=== PATIENT | female | born 1955 | race Caucasian/White ===

== ENCOUNTER 2017-03-09 10:01 | Emergency (ER) | payer OTHER ==
--- NOTE | 2017-03-09 10:18 | UCPHY ---
H & P Patient Type: New HPI/ROS: CHIEF COMPLAINT: Knee injury HISTORY OF PRESENT ILLNESS: 61-year-old female presents reporting that she stumbled and fell onto her right knee 3 days ago. Patient was able to get up and continue hiking. Knee has been bothering her but has been able to walk on it. This morning, when she woke, and felt like the knee was unstable when she got out of bed and somewhat out of place. No new injury. No history of DVT or PE. No fever, chills, chest pain, shortness of breath, palpitations, vomiting, diarrhea, urinary complaints, headache, lightheadedness. REVIEW OF SYSTEMS: Aside from elements discussed in the HPI, a comprehensive 10-point review of systems was reviewed and is negative. PAST MEDICAL HISTORY: Hypertension SOCIAL HISTORY: . GENERAL APPEARANCE: No acute distress. Pleasant. FOCUSED EXAM OF right knee: No obvious deformities. Patient has ecchymosis medially and laterally at the joint line. Difficult to appreciate swelling. Full range of motion. Negative anterior drawer. Knee is stable to medial and lateral stress. No tenderness to palpatio in the popliteal fossa. No swelling. No pain in the calf. No calf swelling. Neurovascular exam: Good capillary refill, normal motor exam, normal neurologic exam. Constitutional: Initial Vital Signs Temperature (C) 36.6 C 03/09/17 10:19 Heart Rate 78 03/09/17 10:19 Respiratory Rate 18 03/09/17 10:19 Blood Pressure 198/88 H 03/09/17 10:19 O2 Sat (%) 97 03/09/17 10:19 O2 Delivery Mode Room Air Allergies/Adverse Reactions: propoxyphene HCl [From Darvon] Allergy (Verified 11/13/12 16:06) Sulfa (Sulfonamide Antibiotics) [Sulfa(Sulfonamide Antibiotics)] Allergy ( Verified 11/13/12 16:06) Home Medications: Medication Instructions Recorded Atenolol 11/13/12 Levothyroxine [Synthroid 25 mcg 25 mcg PO DAILY06 11/13/12 (RX)] Medical Decision Making - Diagnostics Imaging: Imaging Impressions Knee X-Ray 03/09/17 10:40 Impression: 1. Moderate joint effusion with no acute osseous findings. 2. 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 ED Course/Re-evaluation: X-ray was obtained which demonstrates no fracture, osteoarthritis, moderate joint effusion. Patient is placed in a knee immobilizer. She was advised regarding rest, elevation, and close follow-up with her primary care physician. Please see the discharge instructions. Differential Diagnosis: Differential diagnosis for the patient's injury was considered including but not limited to contusion, abrasion, sprain, strain, dislocation, patellar dislocation, fracture, Tay cyst rupture, or dislocation. Departure - Departure Disposition: Home, Routine, Self-Care Clinical Impression: Knee injury Qualifiers: Encounter type: initial encounter Laterality: left Qualified Code(s): S89.92XA - Unspecified injury of left lower leg, initial encounter Knee contusion Qualifiers: Encounter type: initial encounter Laterality: left Qualified Code(s): S80.02XA - Contusion of left knee, initial encounter Condition: Good Instructions: Knee Sprain (ED), Knee Pain (ED) Additional Instructions: Mainstay of therapy is rest, ice, immobilization, elevation, and nonsteroidal anti-inflammatories for pain and to decrease swelling. Please use a heating pad to help with any pain discomfort in the knee. I recommend Ibuprofen (Motrin, Advil) or Naproxen Sodium (Aleve) for pain and anti-inflammatory effects. You may take either one, but do not take both. Your dose is: Ibuprofen 600 mg every 6-8 hours with food. OR Naproxen Sodium (Aleve) 220 mg every 12 hours. Wear the knee immobilizer if it provides the sense of stability. It is only needed for comfort. Followup with the physician as directed. Referrals: Yasmin Ramirez MD [Primary Care Provider] - As per Instructions ( Follow-up next week. If you continue to have pain, you may need further evaluation.) - PQRS PQRS Measurement: not applicable
[2017-03-09 10:25] VITALS: BP 198/88; PULSE 78; RESP 18; TEMP 98; O2SAT 97
== END 2017-03-09 11:34 | disposition home or self-care (01) ==
LOC: CED 10:01
DX: S89.91XA Unspecified injury of right lower leg, initial encounter (principal); S80.02XA Contusion of left knee, initial encounter; M25.461 Effusion, right knee; M17.11 Unilateral primary osteoarthritis, right knee; I10 Essential (primary) hypertension; W19.XXXA Unspecified fall, initial encounter; Y93.01 Activity, walking, marching and hiking
CPT/HCPCS: 73564-PO; G0463-PO; L1830

== ENCOUNTER → 2017-10-27 | Outpatient (CLI) | payer OTHER ==
[~2017-10-27] MED LIST: IOPAMIDOL (ISOVUE-300) 100 ML BTL ONE
== END ==
LOC: CIMAGING 12:36
PROVIDERS: ATTEND Family Medicine
DX: K44.9 Diaphragmatic hernia without obstruction or gangrene (principal); I70.0 Atherosclerosis of aorta; M51.36 Other intervertebral disc degeneration, lumbar region; M46.96 Unspecified inflammatory spondylopathy, lumbar region
CPT/HCPCS: 74160-PO; Q9967